=== PATIENT | male | born 1980 | race Caucasian/White ===

== ENCOUNTER 2020-09-14 19:05 | Inpatient (IN) | payer OTHER ==
[~2020-09-14] VITALS: Ht 162.6 cm; Wt 63.9 kg
[2020-09-14 21:19] LABS: HEMATOCRIT 49.1 % (42.0-52.0); MEAN CORPUSCULAR HEMOGLOBIN 31.6 pg (27.0-33.0); MEAN CORPUSCULAR HGB CONC 32.6 g/dl (32.0-36.5); PLATELET COUNT, AUTOMATED 237 10^3/uL (150-450); RED BLOOD COUNT 5.06 10^6/uL (4.30-6.10); WHITE BLOOD COUNT 9.9 10^3/uL (4.0-10.0)
[2020-09-14 21:43] LABS: AMPHETAMINES LEVEL URINE NEGATIVE (NEGATIVE); BARBITURATES URINE NEGATIVE (NEGATIVE); BENZODIAZEPINES URINE NEGATIVE (NEGATIVE); CANNABINOIDS URINE POSITIVE (NEGATIVE); COCAINE METABOLITE URINE NEGATIVE (NEGATIVE); METHADONE URINE NEGATIVE (NEGATIVE); OPIATES URINE NEGATIVE (NEGATIVE); PHENCYCLIDINE URINE NEGATIVE (NEGATIVE)
[2020-09-14 22:08] LABS: ACETAMINOPHEN LEVEL < 2.0 UG/ML (10.0-30.0); ALBUMIN 3.7 GM/DL (3.2-5.2); ALT/SGPT 95 U/L (12-78); BILIRUBIN,DIRECT < 0.1 MG/DL (0.0-0.2); BILIRUBIN,TOTAL 0.2 MG/DL (0.2-1.0); BLOOD UREA NITROGEN 7 MG/DL (7-18); CALCIUM LEVEL 8.4 MG/DL (8.5-10.1); CARBON DIOXIDE LEVEL 31 MEQ/L (21-32); CHLORIDE LEVEL 109 MEQ/L (98-107); CREATININE FOR GFR 0.59 MG/DL (0.70-1.30); ETHYL ALCOHOL (ETHANOL) 0.406 % (0.000-0.010); GLOMERULAR FILTRATION RATE > 60.0 (>60); GLUCOSE, FASTING 93 MG/DL (70-100); POTASSIUM SERUM 4.3 MEQ/L (3.5-5.1); SALICYLATE LEVEL 6.6 MG/DL (5.0-30.0); SODIUM LEVEL 144 MEQ/L (136-145); TOTAL PROTEIN 6.8 GM/DL (6.4-8.2)
[2020-09-14] MEDS ORDERED: NICOTINE 21MG/24HR 1 EA TRANSDERMAL TD ONE (22:30)
[2020-09-14] MEDS ORDERED: LORazepam 2 MG TAB PO PRN (22:30)
[2020-09-15] MEDS: THIAMINE 100 MG TAB PO SCH ×2 (11:09→22:20)
[2020-09-15] MEDS: MULTIVITAMINS/MINERALS THERAP 1 TAB PO SCH (11:09)
[2020-09-15] MEDS: FOLIC ACID 1 MG TAB PO SCH (11:09)
[2020-09-15 16:06] LABS: RSV AMPLIFICATION NEGATIVE (NEGATIVE)
[2020-09-16] MEDS ORDERED: NICOTINE 21MG/24HR 1 EA TRANSDERMAL TD ONE (10:00)
[2020-09-16] MEDS: MULTIVITAMINS/MINERALS THERAP 1 TAB PO SCH (10:29)
[2020-09-16] MEDS: THIAMINE 100 MG TAB PO SCH ×2 (10:29→21:12)
[2020-09-16] MEDS: FOLIC ACID 1 MG TAB PO SCH (10:29)
--- NOTE | 2020-09-17 05:18 | ECGEPIP ---
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
[2020-09-17] MEDS: FOLIC ACID 1 MG TAB PO SCH (10:17)
[2020-09-17] MEDS: THIAMINE 100 MG TAB PO SCH (10:18)
[2020-09-17] MEDS: MULTIVITAMINS/MINERALS THERAP 1 TAB PO SCH (10:18)
[2020-09-17] MEDS ORDERED: traZODone 50 MG TAB PO PRN (11:45)
[2020-09-17] MEDS ORDERED: ACETAMINOPHEN TAB 650MG DOSE (2X325MG) PO PRN (11:45)
[2020-09-17] MEDS ORDERED: MOM 30ML SUSPENSION UDC PO PRN (11:45)
[2020-09-17] MEDS ORDERED: MAALOX 30 ML SUSP *UDC PO PRN (11:45)
[2020-09-17 13:33] VITALS: BP 127/75
[2020-09-17 14:00] VITALS: BP 127/75
[2020-09-17] MEDS ORDERED: LORazepam 2 MG TAB PO PRN (15:45)
[2020-09-18 01:09] VITALS: BP 148/82
[2020-09-18 05:55] VITALS: BP 148/82
[2020-09-18 06:00] VITALS: BP 125/74
[2020-09-18] MEDS ORDERED: MULTIVITAMINS/MINERALS THERAP 1 TAB PO SCH (09:00)
[2020-09-18] MEDS ORDERED: FOLIC ACID 1 MG TAB PO SCH (09:00)
[2020-09-18] MEDS ORDERED: NICOTINE 21MG/24HR 1 EA TRANSDERMAL TD SCH (09:00)
[2020-09-18] MEDS ORDERED: FLUBLOK(EGG FREE)(QUAD)INFLUENZA VACC 0.5ML SYRINGE 18YRS & OLDER IM ONE (11:45)
--- NOTE | 2020-09-18 12:05 | MHHPEPDOC ---
General Date Of Admission: Sep 17, 2020 Legal Status: 9.39 Chief Complaint "I got totally drunk". History of Present Illness HISTORY OF THE PRESENT ILLNESS: Patient is a 40 -year-old Single, Unemployed, Domiciled , male, who had been inebriated and states that he was drinki ng excessively and fell over and cut his arm on a bottle. Patient has a small 0.5 cm laceration to the superior side of his left arm. He states that he was cut by a beer bottle. His daughter called the police because he was bleeding excessively but he states, "I don't remember very much, I was drinking a lot that night." Patient was seen in the ED on 09/15/20 and had been awaiting a bed in the ED. Per the ED report: Pt. reports long history of alcohol abuse. States last night and he and daughter were arguing, doesn't remember about what and he broke beer bottle and intentionally cut arm. When asked if was suicidal and made suicidal statement he said "I very well may have." He denies SI currently. He reports drinks beer/liquor daily. Has gone to rehab before about 5 years ago in [place], was sober for 3 years after. He denies any out-pt services currently, went to [facility] years ago. Pt. states he lives with daughter. Psychiatric Review of Systems Depression (2 or more weeks): feelings of excess/guilt, difficulty concentrating Yumiko (4 or more days of): denies Psychosis: denies PTSD: denies Anxiety: situational anxiety, stressor related anxiety Anxiety/ 6 months or more of: restlessness, keyed up, easily fatigued, difficulty concentrating, irritability Past Psychiatric History Previous Psychiatric Diagnosis: Unspecified Depressive Disorder Previous Psychiatric Admissions: Last admission September 2009 Suicide Attempts: Reports no ideation, gestures, attempts. But according to his 2010 admission, patient cut himself during alcohol intoxication Psychiatric Follow-up: Has had past history of Rehab Treatment in [place] several years ago, no current outpatient services Psychiatric medications: None. Past Medical History Head Injury: No Seizures: No Hospitalizations: Yes Surgeries: No Family Medical/Psychiatric HX Medical Problems Mother - possible Schizophrenia Psychiatric Disorders: Yes Addiction: Yes Suicide Attemps/Completions: No Addiction History nicotine, alcohol, other (Marijuna) Social History Childhood: He is the oldest of three children, has 2 younger sisters. Born to both parents, mother had Schizophrenia and when he was very young he was in Foster Care for 1-2 years. States that he doesn't remember this time as he was very young. When he returned from Foster Care, his mother was in and out of his life. 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 Mental Status Examination General Appearance: disheveled, ds/not appear stated age (older), hospital scubs/clothing Build: thin Demeanor: average Eye Contact: average Activity: average Behavior: cooperative Speech: clear Mood: euthymic Affect: full Thought Process: logical/linear Thought Content (Delusions): none reported Thought Content (Other): none reported Thought Content (Aggressive): none reported Perception (Hallucinations): none reported Perception (Other): none reported Cognition (Impairment of): none reported Cognition(Intelligence Est.): borderline Oriented: Awake, Alert, Oriented times three Insight: fair Judgment: Fair Psychosis: Denies Diagnoses Alcohol Induced Depressive Disorder Alcohol Intoxication and Dependence Tobacco Use Disorder Marijuana Use Disorder A-FIB/CHADSVASC A-FIB History Current/History of A-Fib/PAF?: No Assessment Patient is a 40 year old Single, Unemployed, Domiciled, Male who presented to the ED with possible suicide gesture under the influence of alcohol. He reports that he remembers very little and in the ED report he he stated that he had an argument with his daughter nad cut himself with a beer bottle. On interview, patient states that he doesn't remember how he cut himself, feels that he may have fell over and cut his arm by a bottle. The small laceration is quite small and is not indicative of lacerations that are made by suicidal patients (0.5 cm) Alert and oriented to person, place and time. He is calm and cooperative in the interview and denies suicidal ideation, prior to and currently. He denies gestures or attempts recently. He reports no depression, anxiety or any self-harm thoughts. He is not psychotic, manic, delusional, bizarre or having loose associations. Patient was initially seen in the ED on 09/15/20 and was held until there was an available bed. At this time, he presents with no psychiatric symptoms that warrant his involuntary legal hold. He was offered a voluntary legal admission to which he declined. At this time, heis requesting to be discharged. He states that he wants to attend [facility] for Rehab treatment. He lives with his daughter and his sister has offered to stay with him over the weekend. Given that patient has been here almost 72 hours with no reports of suicidal ideation, gestures or attempts on the unit, I feel that he meets criteria for his discharge. He is not requesting any medications. I have cautioned him about his thought about quitting alcohol completely and have discussed with him that he will go into withdrawal if he does. I did encou rage the patient to stay for detox and he declined. Initial Treatment Plan 1. Patient was admitted on a [9.39] status. 2. Complete history was obtained. 3. With patients permission, family will be contacted and database will be exp anded. 4. Patients medication regimen will be reviewed and changed accordingly. 5. Patient will be provided with protected environment. 6. Patient will be treated with individual, group, and milieu therapies. 7. Patient will receive supportive psych-education. 8. Discharge planning will commence immediately. 9. Outpatient follow-up treatment will be strongly recommended. 10. The initial treatment plan will focus initially on: * Depression. * Risk for suicide. * Substance use ESTIMATED LENGTH OF STAY: 1-3 DAYS. TIME SPENT COUNSELING AND COORDINATING INITIAL CARE: 60 minutes. Vital Signs Vital Signs Date Time Temp Pulse Resp B/P (MAP) Pulse Ox O2 Delivery O2 Flow Rate FiO2 09/18/20 08:18 Room Air 09/18/20 06:00 98.3 63 18 125/74 (91) 99 Medications No Active Prescriptions or Reported Meds Allergies Coded Allergies: No Known Allergies (Verified , 09/26/09) AISSATOU DOBBINS NP Sep 18, 2020 11:52
--- NOTE | 2020-09-18 12:36 | MHDSPDOC ---
[facility] Discharge Summary Discharge Summary DATE OF ADMISSION: Sep 17, 2020 at 11:32 DATE OF DISCHARGE: September 18, 2020 at 1235 DISCHARGE DIAGNOSES: Alcohol Induced Depressive Disorder Alcohol Intoxication and Dependence Tobacco Use Disorder Marijuana Use Disorder REASON FOR ADMISSION: Patient is a 40 -year-old Single, Unemployed, Domiciled , male, who had been inebriated and states "I was totally drunk" and fell over and cut his arm on a bottle. Patient has a small 0.5 cm laceration to the superior side of his left arm. He states that he was cut by a beer bottle. His daughter called the police because he was bleeding excessively but he states, "I don't remember very much, I was drinking a lot that night." Patient was seen in the ED on 09/15/20 and had been awaiting a bed in the ED. CONSULTANTS INVOLVED: See H + P by Medical Provider TREATMENT AND PROGRESS ON THE UNIT : Patient was admitted to unit on a 9.39 l egal status and was afforded 1) Group Therapy, 2) Individual Therapy, 3) Medication Management 4) Alcohol Withdrawal Medication Management, 5) Milieu Therapy and 6) Safe Environment HOSPITAL COURSE: Patient was admitted and observed for alcohol withdrawal. He was observed for any suicidal ideation, gestures and planning. He was calm and cooperative and visible on the unit. Patient is a 40 year old Single, Unemployed, Domiciled, Male who presented to the ED with possible suicide gesture under the influence of alcohol. He reports that he remembers very little and in the ED report he he stated that he had an argument with his daughter nad cut himself with a beer bottle. On interview, patient states that he doesn't remember how he cut himself, feels that he may have fell over and cut his arm by a bottle. The small laceration is quite small and is not indicative of lacerations that are made by suicidal patients (0.5 cm) Alert and oriented to person, place and time. He is calm and cooperative in the interview and denies suicidal ideation, prior to and currently. He denies gestures or attempts recently. He reports no depression, anxiety or any self-harm thoughts. He is not psychotic, manic, delusional, bizarre or having loose associations. Patient was initially seen in the ED on 09/15/20 and was held until there was an available bed. At this time, he presents with no psychiatric symptoms that warrant his involuntary legal hold. He was offered a voluntary legal admission to which he declined. At this time, he is requesting to be discharged. He states that he wants to attend [facility] for Rehab treatment. He lives with his daughter and his sister has offered to stay with him over the weekend. Given that patient has been here almost 72 hours with no reports of suicidal ideation, gestures or attempts on the unit, I feel that he meets criteria for his discharge. He is not requesting any medications. I have cautioned him about his thought about quitting alcohol completely and have discussed with him that he will go into withdrawal if he does. I did encourage the patient to stay for detox and he declined. DISCHARGE ASSESSMENT: In today's interview. Patient was calm and cooperative. He reports that he is motivated to go to [facility] for Rehab, feeling remorseful that his daughter has been dealing with his alcohol use for many years. He at this time, denies depression and anxiety or suicidal ideation. He is not observed with any psychotic symptoms or poor insight or judgment. He has a normal mentation and does meet criteria for discharge today given that he has been in the hospital of almost 72 hours. MENTAL STATUS EXAMINATION ON DISCHARGE: Patient is a 40 -year-old Single, Unemployed, Domiciled , male, who had been inebriated and states "I was totally drunk". In today's interview, he reports remembering very little of his General Appearance: disheveled, ds/not appear stated age (older), hospital scrubs/clothing Build: thin Demeanor: average Eye Contact: average Activity: average Behavior: cooperative Speech: clear Mood: euthymic Affect: full Thought Process: logical/linear Thought Content (Delusions): none reported Thought Content (Other): none reported Thought Content (Aggressive): none reported Perception (Hallucinations): none reported Perception (Other): none reported Cognition (Impairment of): none reported Cognition(Intelligence Est.): borderline Oriented: Awake, Alert, Oriented times three Insight: fair Judgment: Fair Psychosis: Denies PLAN/FOLLOWUP ARRANGEMENTS: Will be seen at [facility] - see Physics And Astronomy Professor's Notes The amount of time spent in the coordination of care for this patient was approximately 10 minutes. Vital Signs/I&Os Vital Signs Date Time Temp Pulse Resp B/P (MAP) Pulse Ox O2 Delivery O2 Flow Rate FiO2 09/18/20 08:18 Room Air 09/18/20 06:00 98.3 63 18 125/74 (91) 99 Medications No Active Prescriptions or Reported Meds Allergies Coded Allergies: No Known Allergies (Verified , 09/26/09) AISSATOU DOBBINS NP Sep 18, 2020 12:36
[2020-09-18] MEDS ORDERED: INFLUENZA QUADRIVALENT PF VACCINE 0.5ML SYRINGE IM ONE (13:00)
--- NOTE | 2020-09-18 19:50 | HPEPDOC ---
General Date of Admission Sep 17, 2020 at 11:32 Date of Service: Sep 18, 2020 Chief Complaint The patient is a 40-year-old male admitted with a reason for visit of Major Depressive Disorder. Source: Patient Exam Limitations: No limitations Severity: Moderate History of Present Illness Patient is 40 years old male with past medical history of alcoholism, depression presented to the hospital with possible suicide gesture under the influence of alcohol. During my interview patient denied any suicidal ideation or attempts. Patient states that he doesn't remember how he cut himself, feels that he may have fell over and cut his arm by a bottle. The small laceration is quite small and is not indicative of lacerations that are made by suicidal patients (0.5 cm) . Patient denied fever, chills, nausea, vomiting, diarrhea or dysuria Home Medications No Active Prescriptions or Reported Meds Allergies Coded Allergies: No Known Allergies (Verified , 09/26/09) Past Medical History Medical History Alcohol Induced Depressive Disorder Alcohol Intoxication and Dependence Tobacco Use Disorder Marijuana Use Disorder Family History I personally reviewed family history and found not pertinent Social History * Smoker: current smoker Alcohol: heavy Drugs: marijuana A-FIB/CHADSVASC A-FIB History Current/History of A-Fib/PAF?: No Current PO Anticoag Therapy: No Review of Systems Constitutional: Denies: Chills, Fever Eyes: Denies: Pain ENT: Denies: Head Aches Skin: Denies: Lesions Pulmonary: Denies: Dyspnea Cardiovascular: Denies: Chest Pain, Palpitations Gastrointestinal: Denies: Nausea, Vomiting Genitourinary: Denies: Dysuria Hematologic: Denies: Bruising, Bleeding Excessively Endocrine: Denies: Polydipsia Musculoskeletal: Denies: Neck Pain, Back Pain Neurological: Denies: Weakness Psych: Reports: Anxiety, Depression; Denies: Mood Normal Physical Examination General Exam: Positive: Alert, Cooperative Eye Exam: Positive: PERRLA ENT Exam: Positive: Atraumatic Neck Exam: Positive: Supple; Negative: JVD Chest Exam: Positive: Clear to auscultation Heart Exam: Positive: Rate Normal Telemetry: Positive: No significant arrhythmia Abdomen Exam: Positive: Normal bowel sounds Extremity Exam: Negative: Cyanosis Skin Exam: Positive: Nl turgor and temperature Neuro Exam: Positive: Strength at 5/5 X4 ext Psych Exam: Positive: Anxiety, Oriented x 3 Vital Signs Vital Signs Date Time Temp Pulse Resp B/P (MAP) Pulse Ox O2 Delivery O2 Flow Rate FiO2 09/18/20 08:18 Room Air 09/18/20 06:00 98.3 63 18 125/74 (91) 99 Assessment/Plan Patient is 40 years old male with past medical history of alcoholism, depression presented to the hospital with possible suicide gesture under the influence of alcohol. During my interview patient denied any suicidal ideation or attempts. Patient states that he doesn't remember how he cut himself, feels that he may have fell over and cut his arm by a bottle. The small laceration is quite small and is not indicative of lacerations that are made by suicidal patients (0.5 cm) . Patient denied fever, chills, nausea, vomiting, diarrhea or dysuria Problems (1) Major depressive disorder Status: Acute Problem Text: defer treatment to psych team Plan / VTE VTE Prophylaxis Ordered?: No VTE Exclusion Mechanical Proph: Low Risk for VTE MIESHA MCKENZIE DO Sep 18, 2020 19:50
== END 2020-09-18 13:30 | disposition home or self-care (01) | DRG 775 ==
LOC: M ED 19:05 → M ED INP 09-17 11:32 → M PSY 09-17 13:25
PROVIDERS: ADMIT Pediatrics; ATTEND Psychiatry & Neurology Psychiatry
DX: F10.24 Alcohol dependence with alcohol-induced mood disorder (principal); F17.200 Nicotine dependence, unspecified, uncomplicated; F12.90 Cannabis use, unspecified, uncomplicated; F32.9 Major depressive disorder, single episode, unspecified

== ENCOUNTER → 2021-09-28 | Outpatient (REF) | LOC: M LAB 08:20 | DX: Z02.89 Encounter for other administrative examinations (principal) ==